=== PATIENT | female | born 1950 | race Caucasian/White ===

== ENCOUNTER → 2017-07-20 | Outpatient (CLI) | payer MEDICARE ==
[~2017-07-20] MED LIST: OMNIPAQUE 350 MG/ML, 150 ML BOTTLE ONE
== END | disposition home or self-care (01) ==
LOC: CFH 12:12
PROVIDERS: ATTEND Urology
DX: N20.0 Calculus of kidney (principal); K76.89 Other specified diseases of liver; M51.36 Other intervertebral disc degeneration, lumbar region; Z85.51 Personal history of malignant neoplasm of bladder
CPT/HCPCS: 74178; 82565; Q9967

== ENCOUNTER → 2017-10-03 | Outpatient (CLI) | payer MEDICARE ==
[~2017-10-03] MED LIST changes: +ATOR20TA9 PO; +LEVO88TA2 PO; -OMNIPAQUE 350 MG/ML, 150 ML BOTTLE ONE; +PARO40TA61 PO; +inderal PO
[2017-10-03 10:43] LABS: MICROSCOPIC AUTO
== END ==
LOC: STAR 09:26
PROVIDERS: ATTEND Urology
DX: Z01.818 Encounter for other preprocedural examination (principal); N20.0 Calculus of kidney
CPT/HCPCS: 81001; 87086

== ENCOUNTER 2017-10-06 10:25 | Observation (INO) | payer MEDICARE ==
[~2017-10-06] VITALS: Ht 154.9 cm; Wt 57.2 kg
[2017-10-06 11:23] VITALS: BP 167/102
[2017-10-06] MEDS ORDERED: SODIUM CHLORIDE 0.9% 1,000 ML IV SCH ×2 (11:25→19:22)
[2017-10-06] MEDS ORDERED: PROP20TA PO (11:30)
[2017-10-06 11:58] LABS: INTERNATIONAL NORMALIZED RATIO 1.03 (0.93-1.1); PROTHROMBIN TIME 10.6 Seconds (9.6-11.5)
[2017-10-06] MEDS ORDERED: CEFAZOLIN PMX 1GM/50ML 50 ML IV ONE (12:00)
[2017-10-06] MEDS ORDERED: FENTANYL PF 100 MCG/2ML ONE ×2 (13:03→14:19)
[2017-10-06] MEDS ORDERED: MIDAZOLAM 1 MG/ML, 5ML ONE ×2 (13:04→14:19)
[2017-10-06] MEDS ORDERED: NALOXONE 1 MG/ML, 2ML ONE ×2 (13:04→14:20)
[2017-10-06] MEDS ORDERED: FLUMAZENIL 0.1 MG/1 ML, 5ML ONE ×2 (13:04→14:20)
[2017-10-06] MEDS ORDERED: VISIPAQUE 270 MG/ML, 50ML BOTTLE ONE (16:04)
[2017-10-06] MEDS ORDERED: morphine SULFATE 10 MG/ML, 1ML ONE (16:44)
[2017-10-06] MEDS ORDERED: morphine SULFATE/PF 0.5 MG/ML, 10ML IV PRN (17:00)
[2017-10-06] MEDS ORDERED: PROMETHAZINE 12.5 MG SUPP PR PRN (17:00)
[2017-10-06 18:44] VITALS: BP 132/79
[2017-10-06] MEDS ORDERED: DOCUSATE 100 MG CAPSULE PO PRN (19:30)
[2017-10-06] MEDS ORDERED: ACETAMINOPHEN 325 MG TABLET PO PRN (19:30)
[2017-10-06] MEDS ORDERED: hydrALAzine 20 MG/ML, 1ML IVPush PRN (19:30)
[2017-10-06] MEDS ORDERED: morphine SULFATE 10 MG/ML, 1ML IVPush PRN (19:30)
[2017-10-06] MEDS ORDERED: BISACODYL 10 MG SUPP PR PRN (19:30)
[2017-10-06] MEDS ORDERED: POLYETHYLENE GLYCOL 17 GM PACKET PO PRN (19:30)
[2017-10-06] MEDS ORDERED: ONDANSETRON ODT 4 MG PO PRN (19:30)
[2017-10-06] MEDS ORDERED: METOCLOPRAMIDE 5 MG/ML, 2ML IVPush PRN (19:30)
[2017-10-06] MEDS ORDERED: ATORVASTATIN 20 MG TABLET PO SCH (21:00)
[2017-10-06] MEDS: HYDROcodone/APAP 5/325 TABLET PO PRN (22:10)
[2017-10-07 00:31] VITALS: BP 120/77
[2017-10-07] MEDS: HYDROcodone/APAP 5/325 TABLET PO PRN ×2 (04:44→11:47)
[2017-10-07 05:01] LABS: BASOPHILS # (AUTO) 0.01 x10^3/uL (0-0.1); BASOPHILS % (AUTO) 0 % (0-1); EOSINOPHILS % (AUTO) 0 % (1-7); LYMPHOCYTES # (AUTO) 0.58 x10^3/uL (1-3.4); LYMPHOCYTES % (AUTO) 5 % (22-44); MD NO; MEAN CORPUSCULAR HEMOGLOBIN 29.8 pg (27.0-34.8); MEAN CORPUSCULAR HGB CONC 33.3 g/dL (32.4-35.8); MEAN CORPUSCULAR VOLUME 89.4 fL (80-100); MEAN PLATELET VOLUME 7.2 fL (7.4-10.4); MONOCYTES # (AUTO) 0.56 x10^3/uL (0.2-0.8); MONOCYTES % (AUTO) 4 % (2-9); NEUTROPHILS # (AUTO) 11.84 x10^3/uL (1.8-6.8); NEUTROPHILS % (AUTO) 91 % (42-75); PLATELET COUNT 230 x10^3/uL (130-400); RED BLOOD COUNT 4.44 x10^6/uL (3.82-5.3); RED CELL DISTRIBUTION WIDTH 13.3 % (9.6-15.2)
[2017-10-07 05:17] LABS: ANION GAP 6 mmol/L (5-15); CALCIUM 8.1 mg/dL (8.5-10.1); CHLORIDE 109 mmol/L (98-107)
[2017-10-07] MEDS ORDERED: LEVOTHYROXINE 88 MCG TABLET PO SCH (06:00)
[2017-10-07 08:30] VITALS: BP 101/54
[2017-10-07] MEDS ORDERED: PROPRANOLOL 20 MG TABLET PO SCH (09:00)
[2017-10-07] MEDS ORDERED: PAROXETINE 20 MG TABLET PO SCH (09:00)
== END 2017-10-07 12:15 | disposition home or self-care (01) ==
LOC: OUT 10:25 → 4NOR 18:19 → OUT 19:22 → 4NOR 19:22
PROVIDERS: ADMIT Urology; ATTEND Urology
DX: N20.0 Calculus of kidney (principal); R11.2 Nausea with vomiting, unspecified; F32.9 Major depressive disorder, single episode, unspecified; E03.9 Hypothyroidism, unspecified; D72.829 Elevated white blood cell count, unspecified; M19.90 Unspecified osteoarthritis, unspecified site; I34.1 Nonrheumatic mitral (valve) prolapse; Z85.51 Personal history of malignant neoplasm of bladder; Z93.6 Other artificial openings of urinary tract status
CPT/HCPCS: 36415; 50433; 80048; 85025; 85610; 96361; 96365; 96375; 99156; 99157; C1751; C1769; C2625; G0378; J0690; J2250; J2274; J3010; J7030; Q0162; Q9966; J2310

== ENCOUNTER 2017-10-09 12:47 | Observation (INO) | payer MEDICARE ==
[~2017-10-09] VITALS: Ht 154.9 cm; Wt 64.3 kg
[~2017-10-09 12:47] MED LIST changes: +PROP20TA PO
[2017-10-09] MEDS ORDERED: LACTATED RINGERS 1,000 ML IV SCH (13:19)
[2017-10-09] MEDS ORDERED: MIDAZOLAM 1 MG/ML, 2ML ONE (15:13)
[2017-10-09] MEDS ORDERED: FENTANYL PF 250 MCG/5ML ONE (15:23)
[2017-10-09] MEDS ORDERED: PROPOFOL 100 ML ONE (15:24)
[2017-10-09] MEDS ORDERED: ROCURONIUM 10MG/ML,5ML ONE ×2 (15:42→17:33)
[2017-10-09] MEDS ORDERED: LIDOCAINE 2% 100MG/5ML SYRINGE ONE (15:42)
[2017-10-09] MEDS ORDERED: OMNIPAQUE 350 MG/ML, 50 ML BOTTLE ONE (16:00)
[2017-10-09] MEDS ORDERED: OMNIPAQUE 350 MG/ML, 50 ML BOTTLE INJ ONE (17:25)
[2017-10-09] MEDS ORDERED: SUCCINYLCHOLINE 20 MG/ML, 10ML ONE (17:33)
[2017-10-09] MEDS ORDERED: GLYCOPYRROLATE 0.2MG/1ML, 5ML ONE (17:33)
[2017-10-09] MEDS ORDERED: ONDANSETRON 2MG/ML, 2ML ONE (17:33)
[2017-10-09] MEDS ORDERED: PROPOFOL 10 MG/ML, 20ML ONE (17:33)
[2017-10-09] MEDS ORDERED: DEXAMETHASONE 4 MG/ML, 1ML ONE (17:33)
[2017-10-09] MEDS ORDERED: NEOSTIGMINE 1 MG/ML, 10ML ONE (17:33)
[2017-10-09] MEDS ORDERED: CEFAZOLIN 1,000 MG ONE (17:33)
[2017-10-09] MEDS ORDERED: CIPROFLOXACIN/PMX 400MG/200ML 200 ML IVPB SCH (18:00)
[2017-10-09] MEDS ORDERED: ONDANSETRON 2MG/ML, 2ML IV PRN (18:00)
[2017-10-09] MEDS ORDERED: OPIUM/BELLADONNA SUPP.RECT 16.2-30 MG PR PRN (18:00)
[2017-10-09] MEDS ORDERED: FENTANYL PF 100 MCG/2ML ONE (18:24)
[2017-10-09] MEDS ORDERED: LABETALOL 5MG/ML, 20ML IV PRN (18:30)
[2017-10-09] MEDS ORDERED: hydrALAzine 20 MG/ML, 1ML IV PRN (18:30)
[2017-10-09] MEDS ORDERED: PROMETHAZINE 25 MG/ML, 1ML IV PRN (18:30)
[2017-10-09] MEDS ORDERED: PROMETHAZINE 25 MG SUPP PR PRN (18:30)
[2017-10-09] MEDS ORDERED: ACETAMINOPHEN 325 MG TABLET PO PRN (18:30)
[2017-10-09] MEDS ORDERED: MORPHINE SULFATE 4 MG/ML, 1ML IVPush PRN (18:30)
[2017-10-09] MEDS ORDERED: PROMETHAZINE 12.5 MG SUPP PR PRN (18:30)
[2017-10-09] MEDS ORDERED: HYDROmorphone 1 MG/ML, 1ML IV PRN (18:30)
[2017-10-09] MEDS ORDERED: ONDANSETRON ODT 8 MG PO PRN (18:30)
[2017-10-09] MEDS ORDERED: OXYcodone 5 MG/5 ML ORAL.SOL UDC PO PRN (18:30)
[2017-10-09] MEDS ORDERED: FENTANYL PF 100 MCG/2ML IV PRN (18:30)
[2017-10-09] MEDS ORDERED: MEPERIDINE/PF 25MG/0.5ML IVPush PRN (18:30)
[2017-10-09 20:31] VITALS: BP 139/86
[2017-10-09] MEDS: POTASSIUM CHLORIDE 20 MEQ in D5%-0.9% NACL 1,000 ML IV SCH (20:46)
[2017-10-09] MEDS: HYDROcodone/APAP 5/325 TABLET PO PRN ×2 (20:47→23:49)
[2017-10-09] MEDS ORDERED: ATORVASTATIN 20 MG TABLET PO SCH (21:00)
[2017-10-10 00:11] VITALS: BP 134/80
[2017-10-10] MEDS: HYDROcodone/APAP 5/325 TABLET PO PRN (04:04)
[2017-10-10 04:10] VITALS: BP 126/76
[2017-10-10 05:19] LABS: CHLORIDE 109 mmol/L (98-107)
[2017-10-10] MEDS ORDERED: LEVOTHYROXINE 88 MCG TABLET PO SCH (06:00)
[2017-10-10 06:10] LABS: ANION GAP 8 mmol/L (5-15); CALCIUM 8.2 mg/dL (8.5-10.1); CREATININE 0.84 mg/dL (0.55-1.02)
[2017-10-10] MEDS: POTASSIUM CHLORIDE 20 MEQ in D5%-0.9% NACL 1,000 ML IV SCH (06:27)
[2017-10-10 08:17] VITALS: BP 114/74
[2017-10-10] MEDS ORDERED: PAROXETINE 20 MG TABLET PO SCH (09:00)
[2017-10-10 11:13] VITALS: BP 139/72
== END 2017-10-10 12:25 | disposition home or self-care (01) ==
LOC: OUT 12:47 → ORIP 17:45 → 4NOR 19:09 → DCLOUNGE 10-10 12:04
PROVIDERS: ADMIT Urology; ATTEND Urology
DX: N20.0 Calculus of kidney (principal); Z87.442 Personal history of urinary calculi
CPT/HCPCS: 36415; 50080; 74425; 80048; 82360; 85018; 88300; 96365; C1727; C1729; C1758; C1769; C2617; C2625; C2627; G0378; J0330; J0744; J1100; J2250; J2405; J2704; J2710; J3010; J3480; J7120; Q9967; J0690; J3490; J7042

== ENCOUNTER 2020-11-14 20:40 | Emergency (ER) | payer MEDICARE ==
[~2020-11-14] VITALS: Ht 157.5 cm; Wt 57.0 kg
[~2020-11-14 20:40] MED LIST changes: +ATOR20TA37 PO; -ATOR20TA9 PO
[2020-11-14 20:44] VITALS: BP 200/112
--- NOTE | 2020-11-14 21:23 | NUR ---
PT PRESENTS TO ER FOR HIGH BLOOD PRESSURE, PTS STATES [facility] WHERE SHE GOT HER BLOOD PRESSURE TAKEN AND IT WAS HIGH, HER SON IN LAW AT BEDSIDE AND GOT HER BLOOD PRESSURE TAKEN AT HIS HOUSE AT IT WAS HIGH, PT IS A/OX4, ASYMPTOMATIC, DOESNT TAKE A LOT MEDICATIONS AND IS GENERALLY PRETTY ACTIVE, MD AT BEDSIDE TO DISCUSS POC
[2020-11-14] MEDS ORDERED: AMLODIPINE 5 MG TABLET PO ONE (21:30)
[2020-11-14] MEDS ORDERED: AMLODIPINE 10 MG TAB ONE (21:33)
--- NOTE | 2020-11-14 21:34 | NUR ---
PT ASYMPTOMATIC, PT NOT DIZZY OR LIGHT HEADED, NOT EXPERIENCING ANY CHEST PAIN, NO N/V, PT HAS NO DEFECITS, MD DISCUSSED POC WITH PT AND PT AGREED TO POC
== END 2020-11-14 21:42 | disposition home or self-care (01) ==
LOC: ED 21:00
DX: I10 Essential (primary) hypertension (principal); E78.00 Pure hypercholesterolemia, unspecified
CPT/HCPCS: 93005; 99283